=== PATIENT | male | born 1980 | race African-American/Black ===

== ENCOUNTER 2017-08-24 03:16 | Emergency (ER) | payer SELFPAY | END 2017-08-24 04:27 | disposition home or self-care (01) | LOC: ER 03:16 | DX: S93.402A Sprain of unspecified ligament of left ankle, initial encounter (principal); F12.10 Cannabis abuse, uncomplicated; W22.8XXA Striking against or struck by other objects, initial encounter; Y93.89 Activity, other specified; Y92.89 Other specified places as the place of occurrence of the external cause; Y99.8 Other external cause status | CPT/HCPCS: 73610; 99284 ==